=== PATIENT | female | born 1995 | race Caucasian/White ===

== ENCOUNTER 2023-11-12 09:27 | Emergency (ER) | payer SELFPAY ==
[2023-11-12 09:30] VITALS: BP 110/74
--- NOTE | 2023-11-12 09:50 | ED.GENMED ---
History of Present Illness
General
Chief Complaint: Abdominal Pain
Source: patient
Exam Limitations: none
Time Seen by Provider: 11/12/23 09:37
Nursing documentation reviewed up to this point in time: agreed with
History of Present Illness
History of Present Illness:
28 y/o F
no chronic pmh
5 days of nausea/vomiting/diarrhea
started with diarrhea, and has had a few vomiting episodes the first few days but now just diarrhea, anything she eats/drinks goes right through her. gets a crampy abd pain upper region before BMs, which had been yellowish/green. she took imodium
last night x 1 and this am x 1 but is still having diarrhea, and she did take pepto and now her diarrhea is dark
she has not had fever/chils
she has had some lightheadedness and near syncope on the toilet after Bms
she feels dehydrated and weak
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
sister has same symptoms
no bloody diarrhea
no recent abx.
Past History
Past History
ED Past Medical History: None
ED Past Surgical History: None
Social History
Tobacco: Non-smoker
Alcohol: None
Drug: None
Review of Systems
Review of Systems
Allergies reviewed?: Yes
All Other Systems: Not applicable
Phy Exam
Physical Exam
Physical Exam:
GENERAL: Alert , in no apparent distress
EYE: pupils equal and reactive
NECK: Supple
ENT: o/p clr, slightly dry
CARDIAC: Tachycardic, no edema, no murmur
LUNGS: Clear breath sounds bilaterally, no acute respiratory distress, no wheezes/rales/rhonchi
ABDOMEN: Soft, mild upper abdominal tenderness no r/g, no cvat, normal bowel sounds
NEUROLOGICAL: Alert and oriented, no focal neuro deficits
SKIN: Warm and dry, skin intact.
MUSCULOSKELETAL: No edema, well perfused. neg jacqueline's sign
PSYCH: Normal and appropriate interaction.
Course
Orders/Labs/Results
Orders:
Orders
11/12/23 09:46
Electrocardiogram (*1) Urgent
Reason for Study: Syncope
CT Abd/Pel (IV only)-DH only Urgent
Comment:
Reason For Exam: upper abd pain, severe diarrhea, some vomiting
EKG- Treatment ONCE
0.9% Sodium Chloride 1000 ml [Nss] 1,000 ml IV BOLUS
Dicyclomine [Bentyl] 20 mg PO NOW STA
Test Result ONCE
11/12/23 09:58
Complete Blood Count/With Diff Urgent
Comprehensive Metabolic Panel Urgent
HCG, Serum Qualitative Screen Urgent
Lipase Urgent
Magnesium Urgent
Monotest Urgent
Comment: MONO ADDED ON BY FLOOR 1PM 11-12-23
Urinalysis Reflex To Culture Urgent
Date Specimen was Collected: 11/12/23
Time Specimen was Collected: 09:57
11/12/23 10:12
C DIFF [C difficile Antigen & Toxins] Urgent
KALLI Source: Feces/Stool
Specimen Description:
Date Specimen was Collected: 11/12/23
Time Specimen was Collected: 10:09
Norovirus by PCR Urgent
KALLI Source: Feces/Stool
Specimen Description:
Date Specimen was Collected: 11/12/23
Time Specimen was Collected: 10:09
Stool Culture Urgent
KALLI Source: Feces/Stool
Specimen Description:
Date Specimen was Collected: 11/12/23
Time Specimen was Collected: 10:09
11/12/23 11:01
Potassium Chloride Powder [Klor-Con] 40 meq PO NOW STA
11/12/23 11:06
0.9% Sodium Chloride 1000 ml [Nss] 1,000 ml IV BOLUS
11/12/23 12:49
Loperamide [Imodium] 2 mg PO NOW STA
11/12/23 12:57
Add On- LAB Urgent
Tests Added?: mono
11/12/23 13:24
Ketorolac [Toradol] 30 mg IV NOW STA
Abnormal Lab Results
11/12/23
09:58
MCV 80.2 L fL
(81.0-99.0)
MPV 11.4 H fL
(7.4-10.4)
Absolute Monos (auto) 0.7 H 10^3/uL
(0.1-0.6)
Monocytes % 11.3 H %
(1.7-9.3)
Potassium 3.2 L mmol/L
(3.5-5.1)
Carbon Dioxide 17 L mmol/L
(22-30)
Total Bilirubin 2.3 H mg/dl
(0.2-1.3)
AST 37 H U/L
(14-36)
Urine Ketones 3+ A
(Negative)
Urine Bilirubin 1+ A
(Negative)
11/12/23 09:58
11/12/23 09:58
Vital Signs
Initial and Last Documented VS:
Initial Vital Signs
Temp Pulse Resp BP Pulse Ox
99.3 F 133 18 110/74 98
11/12/23 09:30 11/12/23 09:30 11/12/23 09:30 11/12/23 09:30 11/12/23 09:30
Last Documented Vital Signs
Temp Pulse Resp BP Pulse Ox
98.1 F 81 18 106/72 100
11/12/23 14:04 11/12/23 14:04 11/12/23 14:04 11/12/23 14:04 11/12/23 14:04
MDM/Problems Addressed
Differential Diagnosis Includes:
viral gastroenteritis, colitis, infecious colitis, less likely ischemic colitis
MDM/Problems Addressed:
28 y/o F
no pmh
here with diarrhea and vomiting- started 5 days ago
no longer vomiting but has diarrhea with most anything she intakes orally
mild abd pain upper abd with cramping when she has to move bowels
some chills
no recent travel/abx/hospitalizations
sister with similar symptoms
on exam pt is well appearing
mild tendernes abdomen
membranes are only minimally dry
labs show normal mg, low k, normal wbc, mono shift
metabolic acidosis likely related to ketosis from diarrhea/starvation
given oral K and 2 L fluids
stil lhaving episodes of watery stool
neg for blood, (checked by RN), neg norovirus, neg c d fiff
stool culture pending
ct reviewed, just liquid stool
d/w ed attending
metamucil, oral hydration
oral potassium for 2-3 days
return precautions
reasssessed at discharge
pt had a few more episodes diarrhea
she was offered admission for IV fluids, electroltyes
she declined admission
*Critical Care Note
Total Time (30-74mins, 75-104mins- exclusive of procedures): Not Applicable
ED Attending Note
-
Portions of this chart may have been created with voice recognition software.� Occasional wrong word or��sound alike� substitutions may have occurred due to the inherent limitations of voice recognition software.
Discharge Plan
Departure
Patient Disposition: Home (Routine Discharge)
Date of Disposition: 11/12/23
Time of Disposition: 13:49
Patient with high blood pressure during this ER visit?: No
Condition: Fair
Covid-19: Not Applicable
Discharge Problem:
Diarrhea, Metabolic acidosis
Instructions: Diarrhea in teens and adults, Viral gastroenteritis in adults
Prescriptions:
New
potassium chloride 20 mEq packet
20 meq PO DAILY 3 Days Qty: 3 0RF
dicyclomine 20 mg tablet
20 mg PO QID PRN (Reason: abdominal pain) Qty: 20 0RF
No Action
methocarbamol [Robaxin-750] 750 MG tablet
750 mg PO BID PRN (Reason: spasm) Qty: 14 0RF
Referrals:
Barbara Dixon MD [Active] - Follow up in 5-7 days
NONE,* [Family Provider] -
Activity Restrictions/Additional Instructions:
Your symptoms are probably from a viral infection. Your blood work did show that you had some low potassium levels and that you were dehydrated. You need to stay hydrated with drinking fluids including some electrolytes like Gatorade or vitamin
water. You should take potassium once a day for 3 days starting tomorrow. Use Metamucil once a day in 8 ounces of juice or water to help bulk your stools. Follow the brat diet, bananas, rice, applesauce, toast. You can try an Imodium 2 mg 2-3
times a day as needed to help with your diarrhea. This can swing you the opposite direction you can become constipated so be careful. We sent your stool for culture you will get called if there is any bacteria that you need antibiotics for.
Generally speaking this tends to resolve on its own. Return for bloody diarrhea, fever, severe dehydration symptoms, severe pain. Otherwise you can also follow-up with the GI doctor.
Interventions
Interventions:
*Risk Screen - Suicide Last Done: 11/12/23 10:03
*General Assessment Last Done: 11/12/23 10:06
*Neglect/Abuse Screening Last Done: 11/12/23 10:03
ED- Fall Risk Assessment Last Done: 11/12/23 10:05
*ED COVID-19 Vaccine History Last Done: 11/12/23 10:03
*Nursing Disposition Last Done: 11/12/23 14:04
AP-Lkihuo-Nucbeeljtk Assessment Last Done: 11/12/23 10:04
Discharge Date and Time
Discharge Date/Time: 11/12/23 14:18
Print Language: MARTINIQUAIS
[2023-11-12] MEDS: NSS 1000 IV ×2 (10:01→11:34)
[2023-11-12] MEDS: BENTYL 20 MG PO (10:01)
[2023-11-12 10:02] VITALS: BMI 27.0
[2023-11-12 10:22] LABS: HCG, Serum Qualitative Screen Negative
[2023-11-12 10:23] LABS: ALT (SGPT) 19 U/L (0-35); AST (SGOT) 37 U/L (14-36); Albumin 4.6 g/dl (3.5-5.0); Alkaline Phosphatase 61 U/L (38-126); Blood Urea Nitrogen 14 mg/dl (7-17); Calcium 9.3 mg/dl (8.4-10.2); Carbon Dioxide 17 mmol/L (22-30); Chloride 100 mmol/L (98-107); Estimated Creatinine Clearance 79 ml/min; Glucose 91 mg/dl (70-99); Lipase 72 U/L (23-300); Magnesium 1.8 mg/dl (1.6-2.3); Potassium 3.2 mmol/L (3.5-5.1); Sodium 136 mmol/L (135-145); Total Bilirubin 2.3 mg/dl (0.2-1.3); Total Protein 7.3 g/dl (6.3-8.2); eGFR > 60.00
[2023-11-12 10:27] LABS: Urine Albumin Trace (Neg - Trace); Urine Bilirubin 1+ (Negative); Urine Character Clear (Clear); Urine Color Yellow; Urine Glucose Negative (Negative); Urine Ketone 3+ (Negative); Urine Leukocyte Negative (Negative); Urine Nitrite Negative (Negative); Urine Occult Blood Negative (Negative); Urine Urobilinogen Negative (Neg - 1+)
[2023-11-12 11:09] LABS: Hematocrit 43.3 % (37.0-47.0); Hemoglobin 15.9 g/dL (12.0-16.0); Mean Corp Hgb Conc. 36.7 g/dL (33.0-37.0); Mean Corpuscular Hgb 29.4 pg (27.0-31.0); Mean Corpuscular Volume 80.2 fL (81.0-99.0); Mean Platelet Volume 11.4 fL (7.4-10.4); Platelet Count 172 10^3/uL (130-400); Red Cell Dist. Width 12.4 % (11.5-14.5); White Blood Cell Count 5.9 10^3/uL (4.8-10.8)
[2023-11-12] MEDS: KLOR-CON 40 MEQ PO (11:31)
[2023-11-12 12:25] VITALS: BP 116/73
[2023-11-12 12:29] VITALS: BP 116/73
[2023-11-12 12:33] LABS: % Basophils 0.5 % (0-2); % Eosinophils 1.9 % (0-6); % Immature Granulocytes 0.2 % (0-0.5); % Lymphocytes 27.2 % (20.5-51.1); % Monocytes 11.3 % (1.7-9.3); % Neutrophils 58.9 % (42.2-75.2); Absolute Eosinophils 0.1 10^3/uL (0-0.7); Absolute Lymphocytes 1.6 10^3/uL (1.2-3.4); Absolute Monocytes 0.7 10^3/uL (0.1-0.6); Absolute Neutrophils 3.5 10^3/uL (1.4-6.5); Nucleated Red Blood Cells % 0 %
[2023-11-12] MEDS: IMODIUM 2 MG PO (13:07)
[2023-11-12] MEDS: TORADOL 30 MG IV (13:27)
[2023-11-12 14:04] VITALS: BP 106/72
[2023-11-12 20:16] LABS: Monotest Negative (Negative)
== END 2023-11-12 14:18 | disposition home or self-care (01) ==
LOC: EMR 09:27
PROVIDERS: Physician Assistant; EMERGENCY PHYSICIAN Emergency Medicine
DX: R19.7 Diarrhea, unspecified (principal); E87.20 Acidosis, unspecified
CPT/HCPCS: 99284; 96374; 96361; 74177; 80053; 81003; 83690; 83735; 84703; 85025; 86308; 87045; 87046; 87324; 87427; 87449; 87798; 93005; Q9967